=== PATIENT | male | born 1940 | race Caucasian/White ===

== ENCOUNTER → 2023-10-30 | Outpatient (CLI) | payer OTHER, SELFPAY ==
--- NOTE | 2023-10-30 11:10 | RAD_ITS ---
STUDY: X-RAY - LUMBAR SPINE REASON FOR EXAM: Male, 83 years old. Arthritis. TECHNIQUE: 2 view(s) of the lumbar spine were obtained. COMPARISON: None FINDINGS: Osteopenia. Reversal of the normal lordosis. No substantial scoliosis. Normal vertebral alignment. Laminectomies with posterior fusion from L2 to L4. Diffuse moderate to marked lower thoracic and lumbosacral facet sclerosis. Extensive bone grafting adjacent to the posterior fusion. Intervertebral disc space narrowing with marked osteophyte formation diffusely. Vascular calcification. 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 No acute abnormality or erosive changes. Electronically Signed: Amadou Scherer MD at 9:24 EDT ,
== END | disposition home or self-care (01) ==
LOC: RAD 11:02
PROVIDERS: PCP Internal Medicine; Referring Provider Chiropractor; Visit Provider Chiropractor
DX: M19.90 Unspecified osteoarthritis, unspecified site (principal)
CPT/HCPCS: 72100